=== PATIENT | male | born 1995 | race Caucasian/White ===

== ENCOUNTER 2022-05-11 20:23 | Emergency (ER) | payer OTHER, SELFPAY ==
[2022-05-11 20:36] VITALS: BP 150/65; PULSE 99; RESP 18; TEMP 35.8
--- NOTE | 2022-05-11 21:07 | CRLHL7_ITS ---
For Patients: As a result of the Century Cures Act, medical imaging exams and procedure reports are released immediately into your electronic medical record. You may view this report before your referring provider. If you have questions, please contact your health care provider. INDICATION: Chest pain. TECHNIQUE: Chest 1 view. COMPARISON: None FINDINGS: Cardiovascular and mediastinum: Heart size and vasculature are normal in caliber and appearance. Mediastinum is within normal limits. Lungs and pleural space: Lungs are clear. No sign of infiltrate or mass. No sign of pleural effusion. No pneumothorax. Bones and soft tissues: No significant findings. Left clavicle fixation hardware. IMPRESSION: Unremarkable chest. Dictated by Juan Melgoza MD @ 05/11/2022 9:45:40 PM (Electronically Signed)
--- NOTE | 2022-05-11 21:09 | ED_ITS ---
HPI - Chest Pain General Time Seen by Provider: 21:09 Date Seen: 05/11/22 Chief Complaint: Chest Pain Stated Complaint: chest pain, L arm pain Time Seen by Provider: 05/11/22 21:00 Source: patient, RN notes reviewed and old records reviewed Mode of arrival: ambulatory Limitations: no limitations History of Present Illness HPI narrative: Skip patient is a very pleasant 26-year-old male previously healthy who comes to the emergency room with chest pain. Patient he states he had the onset of chest pain between 3 and 1600 hours today. He notes this to be in his left anterior chest with radiation into his neck and his left arm. He notes that in the past he has felt this but it would only last for a few minutes. However it is now persisting and has been at least 4 hours. He thinks it is mildly improved from the onset. He has been fatigued and states he has had a dry throat and feels like he has been somewhat dehydrated. 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 He has otherwise been healthy. He does not smoke. He denies recent extended travel, history of DVT, leg pain, leg swelling. Patient states he had a similar incidence earlier in the week but the pain went away. He is not short of breath nor has he been coughing or wheezing. He denies any recent trauma. He has not taken any medication for discomfort. Related Data Allergies Allergy/AdvReac Type Severity Reaction Status Date / Time amoxicillin Allergy rash Verified 05/11/22 23:06 Review of Systems Status of ROS Reports: 10 or more systems reviewed and unremarkable except as noted in History and below Const Reports: fatigue; Denies: fever or chills Eyes Denies: change in vision ENMT Denies: throat pain, neck pain or difficulty swallowing Cardio Reports: chest pain; Denies: palpitations, swelling of feet/ankles, lightheadedness or shortness of breath with exertion Resp Denies: shortness of breath GI Denies: abdominal pain, nausea, vomiting, diarrhea or difficulty swallowing Denies: painful urination or urinary frequency Musculo Denies: neck pain Integ/Breast Denies: rash Neuro Denies: headache, numbness in extremities or weakness in extremities Psych Reports: anxiety (According to records) Endo Reports: fatigue Exam Const Vital Signs, click to edit/add: Vital Signs - 24 hr 05/11/22 20:36 05/11/22 22:00 05/11/22 22:30 Temperature 96.5 F L Pulse Rate [Pulse Oximeter] 99 66 57 L Respiratory Rate 18 16 16 Blood Pressure [150/88] 150/65 H 130/79 131/75 Pulse Oximetry 97 98 Oxygen Delivery Method Room Air Room Air Room Air 05/11/22 23:00 05/11/22 23:30 Temperature Pulse Rate [Pulse Oximeter] 55 L 52 L Respiratory Rate 16 16 Blood Pressure [150/88] 133/80 138/90 H Pulse Oximetry 98 98 Oxygen Delivery Method Room Air Room Air Documenting provider has reviewed patient's vital signs: yes Common normals: no apparent distress, average body habitus, oriented x3, no limitations, healthy appearing and alert General appearance: cooperative, comfortable and well kempt HENMT Common normals: normocephalic, head/scalp atraumatic, external ears normal and external nose normal Head and scalp: normocephalic and atraumatic Nose: external nose normal External ear: external ears normal Mouth: oral and palatal mucosa normal Throat: posterior oropharynx normal Eye Common normals: PERRL General eye: normal appearance of both eyes Pupil: PERRL Neck & C-Spine Common normals: no lymphadenopathy and supple Resp Common normals: normal respiratory effort and clear to auscultation bilaterally Effort & inspection: able to speak in complete sentences Auscultation: clear to auscultation bilaterally Cardio Common normals: regular rate, regular rhythm and no murmurs Rate: regular rate Rhythm: regular rhythm Other: Patient thought he felt perhaps slightly improved when leaning forward during auscultatory exam. GI Common normals: soft to palpation and non-tender Palpation: soft Common normals: no CVA tenderness Bladder/kidney exam: no CVA tenderness Back & Pelvis Common normals: no CVA tenderness Extremity Common normals: normal to inspection and no calf tenderness Neuro Common normals: oriented x3 Sensorium/orientation: alert Psych Common normals: mental status grossly normal Appearance: well kempt Skin Common normals: no rashes or lesions noted General skin exam: no rashes or lesions noted and scars (Well-healed over left shoulder) Course Course Hospital Course: At this time patient agrees to lab draw to include CBC, comprehensive panel, troponin, CRP, D-dimer and urinalysis. Will also add a chest x-ray as well as EKG. Differential diagnosis includes but is not limited to pericarditis, costochondritis, pleurisy, acute coronary event, pneumonia, COVID. Reevaluation(s) Reevaluation #1: Patient notes that he still has discomfort. EKG is reassuring and initial troponin is negative. Patient will receive Toradol 15 mg IV. Vital Signs Vital signs: Initial Vital Signs Temperature 96.5 F L 05/11/22 20:36 Temperature Source Temporal Artery Scan 05/11/22 20:36 Pulse Rate 99 05/11/22 20:36 Respiratory Rate 18 05/11/22 20:36 Blood Pressure 150/65 H 05/11/22 20:36 Blood Pressure Mean 93 05/11/22 20:36 Oxygen Delivery Method 05/11/22 20:36 Vital Signs Temperature 96.5 F L 05/11/22 20:36 Pulse Rate 99 05/11/22 20:36 Respiratory Rate 18 05/11/22 20:36 Blood Pressure 150/65 H 05/11/22 20:36 Oxygen Delivery Method 05/11/22 20:36 Temperature 96.5 F L 05/11/22 20:36 Pulse Rate 52 L 05/11/22 23:30 Respiratory Rate 16 05/11/22 23:30 Blood Pressure 138/90 H 05/11/22 23:30 Pulse Oximetry 98 05/11/22 23:30 Oxygen Delivery Method 05/11/22 23:30 MDM - Chest Pain MDM Narrative Medical decision making narrative: 1. Atypical chest pain-patient is noted to have chest pain 5/10 at this initial onset, 2/10 upon his arrival here at the ED and now has had almost complete resolution of his discomfort after receiving Toradol. Two sets of negative cardiac enzymes as well as 2 reassuring EKGs have been done tonight. Further, D-dimer is negative and other labs are reassuring including CRP. Recommend continued use of ibuprofen as needed for discomfort. Follow-up with primary MD for recheck if needed. Course, if pain suddenly increases would have him return to the emergency room. 2. Disposition-patient is discharged home. Return as needed. Medical Records Data Attestation: I reviewed the patient's medical records. Lab Data Attestation: I reviewed the patient's lab results. Labs: Lab Results 05/11/22 05/11/22 05/11/22 Range/Units 21:25 21:30 21:30 WBC 8.06 (4.50-11.00) K/uL RBC 4.96 (4.30-5.90) m/uL Hgb 14.4 (13.5-17.5) gm/dL Hct 41.2 (37.0-53.0) % MCV 83 (80-100) fL MCH 29 (26-34) pg MCHC 35 (32-36) gm/dL RDW Coeff of Keiry 11.7 (11.5-15.5) % Plt Count 218 (140-440) K/uL Neut % (Auto) 63.7 (42.0-72.0) % Lymph % (Auto) 25.6 (20-44) % [place] % (Auto) 5.5 (0.0-11.0) % Eos % (Auto) 4.3 (0.0-7.0) % Baso % (Auto) 0.7 (0.0-3.0) % Neut # (Auto) 5.13 (1.7-7.0) K/uL Lymph # (Auto) 2.06 (0.90-2.90) K/uL [place] # (Auto) 0.40 (0.00-0.90) K/UL Eos # (Auto) 0.35 (0.00-0.50) K/uL Baso # (Auto) 0.06 (0.00-0.30) K/uL Abs Immat Gran (auto) 0.02 (0.00-0.30) K/uL D-Dimer Quant (PE/DVT) 0.32 (0.00-0.50) ug/ml Sodium (135-149) mmol/L Potassium (3.6-5.1) mmol/L Chloride (96-114) mmol/L Carbon Dioxide (20-32) mmol/L BUN (5-24) mg/dL Creatinine (0.5-1.5) mg/dL Estimated GFR ml/min Glucose (60-115) mg/dL Calcium (8.4-10.6) mg/dL Total Bilirubin (0.1-1.5) mg/dL AST (12-35) U/L ALT (4-50) U/L Alkaline Phosphatase (40-150) U/L C-Reactive Protein (0.5-1.0) mg/dL Total Protein (6.0-8.3) g/dL Albumin (3.3-5.0) g/dL Urine Color (Yellow) Urine Appearance (Clear) Urine pH (5.0-8.5) Ur Specific [place] (1.000-1.030) Urine Protein (Negative) Urine Glucose (UA) (Negative) Urine Ketones (Negative) Urine Blood (Negative) Urine Nitrite (Negative) Urine Bilirubin (Negative) Urine Urobilinogen (0.2-1.0) Ur Leukocyte Esterase (Negative) Urine RBC (0-2) Urine WBC (0-5) Ur Squamous Epith Cells (None-Few) Urine Bacteria (None) POC Troponin I 0.00 L (0.01-0.04) ng/ml 05/11/22 05/11/22 05/11/22 Range/Units 21:30 21:30 23:03 WBC (4.50-11.00) K/uL RBC (4.30-5.90) m/uL Hgb (13.5-17.5) gm/dL Hct (37.0-53.0) % MCV (80-100) fL MCH (26-34) pg MCHC (32-36) gm/dL RDW Coeff of Keiry (11.5-15.5) % Plt Count (140-440) K/uL Neut % (Auto) (42.0-72.0) % Lymph % (Auto) (20-44) % [place] % (Auto) (0.0-11.0) % Eos % (Auto) (0.0-7.0) % Baso % (Auto) (0.0-3.0) % Neut # (Auto) (1.7-7.0) K/uL Lymph # (Auto) (0.90-2.90) K/uL [place] # (Auto) (0.00-0.90) K/UL Eos # (Auto) (0.00-0.50) K/uL Baso # (Auto) (0.00-0.30) K/uL Abs Immat Gran (auto) (0.00-0.30) K/uL D-Dimer Quant (PE/DVT) (0.00-0.50) ug/ml Sodium 139 (135-149) mmol/L Potassium 3.6 (3.6-5.1) mmol/L Chloride 104 (96-114) mmol/L Carbon Dioxide 25 (20-32) mmol/L BUN 14 (5-24) mg/dL Creatinine 0.9 (0.5-1.5) mg/dL Estimated GFR 120 ml/min Glucose 98 (60-115) mg/dL Calcium 9.4 (8.4-10.6) mg/dL Total Bilirubin 0.5 (0.1-1.5) mg/dL AST 23 (12-35) U/L ALT 22 (4-50) U/L Alkaline Phosphatase 63 (40-150) U/L C-Reactive Protein < 0.5 L (0.5-1.0) mg/dL Total Protein 7.9 (6.0-8.3) g/dL Albumin 5.0 (3.3-5.0) g/dL Urine Color Yellow (Yellow) Urine Appearance Clear (Clear) Urine pH 7.0 (5.0-8.5) Ur Specific [place] 1.015 (1.000-1.030) Urine Protein Negative (Negative) Urine Glucose (UA) Negative (Negative) Urine Ketones Negative (Negative) Urine Blood Trace-lysed A (Negative) Urine Nitrite Negative (Negative) Urine Bilirubin Negative (Negative) Urine Urobilinogen 0.2 (0.2-1.0) Ur Leukocyte Esterase Negative (Negative) Urine RBC 0-2 (0-2) Urine WBC 0-2 (0-5) Ur Squamous Epith Cells None (None-Few) Urine Bacteria None (None) POC Troponin I 0.00 L (0.01-0.04) ng/ml Imaging Data Chest x-ray: Attestation: I have reviewed the pertinent imaging results. My impression: No acute infiltrates. No evidence of widened mediastinum Radiologist's impression: No acute findings. ECG Data Attestation: I personally reviewed and interpreted this ECG as follows: ECG interpretation date: 05/11/22 Interpretation: No acute ST or T-wave changes. Sinus rhythm at a rate of 65. QT corrected 436 Second EKG by my read shows sinus bradycardia rhythm at a rate of 55. No evidence of acute ST or T-wave changes. Discharge Plan Discharge Clinical Impression: Atypical chest pain Patient Disposition: Home, Self-Care Condition: Improved Additional Instructions: Continue ibuprofen as needed for discomfort. Return to the emergency room for worsening or return of pain. Follow-up with your primary MD for further evaluation. Follow Up/Referrals: Dneisse Dodson MD [Primary Care Provider] - Stand Alone Forms: Girl Meets Dress Info Instructions
[2022-05-11 21:46] LABS: Basophils Absolute Auto 0.06 K/uL (0.00-0.30); Basophils Percent Auto 0.7 % (0.0-3.0); Eosinophils Absolute Auto 0.35 K/uL (0.00-0.50); Eosinophils Percent Auto 4.3 % (0.0-7.0); Hematocrit 41.2 % (37.0-53.0); Hemoglobin* 14.4 gm/dL (13.5-17.5); Immature Granulocytes Abs Auto 0.02 K/uL (0.00-0.30); Lymphocytes Absolute Auto 2.06 K/uL (0.90-2.90); Lymphocytes Percent Auto 25.6 % (20-44); Mean Corpuscular HGB Conc 35 gm/dL (32-36); Mean Corpuscular Hemoglobin 29 pg (26-34); Mean Corpuscular Volume 83 fL (80-100); Monocytes Percent Auto 5.5 % (0.0-11.0); Neutrophils Absolute Auto 5.13 K/uL (1.7-7.0); Neutrophils Percent Auto 63.7 % (42.0-72.0); Platelet Count* 218 K/uL (140-440); RDW Coefficient of Variation % 11.7 % (11.5-15.5); Red Blood Count 4.96 m/uL (4.30-5.90); White Blood Count* 8.06 K/uL (4.50-11.00)
[2022-05-11 22:00] VITALS: BP 130/79; PULSE 66; RESP 16; O2SAT 97
[2022-05-11 22:00] LABS: Chloride* 104 mmol/L (96-114)
[2022-05-11 22:01] LABS: Potassium* 3.6 mmol/L (3.6-5.1); Sodium* 139 mmol/L (135-149)
[2022-05-11 22:03] LABS: Alkaline Phosphatase* 63 U/L (40-150); Aspartate Amino Transferase* 23 U/L (12-35); Bilirubin Total* 0.5 mg/dL (0.1-1.5); Carbon Dioxide* 25 mmol/L (20-32); Creatinine* 0.9 mg/dL (0.5-1.5); Estimated Glomerular Filt Rate 120 ml/min; Total Protein* 7.9 g/dL (6.0-8.3)
[2022-05-11 22:04] LABS: Alanine Aminotransferase* 22 U/L (4-50); Blood Urea Nitrogen* 14 mg/dL (5-24); Calcium* 9.4 mg/dL (8.4-10.6); Glucose* 98 mg/dL (60-115)
[2022-05-11 22:08] LABS: C Reactive Protein* < 0.5 mg/dL (0.5-1.0); Slide Review Reflex No
[2022-05-11 22:20] LABS: D Dimer Quantitative* 0.32 ug/ml (0.00-0.50)
[2022-05-11 22:22] LABS: Appearance Urine Clear (Clear); Bilirubin Urine Negative (Negative); Blood Urine Trace-lysed (Negative); Color Urine Yellow (Yellow); Glucose Urine Negative (Negative); Ketones Urine Negative (Negative); Protein Urine Negative (Negative); Specific Gravity Urine 1.015 (1.000-1.030); Urobilinogen Urine 0.2 (0.2-1.0)
[2022-05-11 22:23] LABS: Leukocyte Esterase Urine Negative (Negative); Nitrite Urine Negative (Negative); RBC Urine 0-2 (0-2); WBC Urine 0-2 (0-5)
[2022-05-11 22:30] VITALS: BP 131/75; PULSE 57; RESP 16; O2SAT 98
[2022-05-11 23:00] VITALS: BP 133/80; PULSE 55; RESP 16; O2SAT 98
[2022-05-11] MEDS: KETOROLAC 15 MG/ML inj IVP (23:06)
[2022-05-11 23:30] VITALS: BP 138/90; PULSE 52; RESP 16; O2SAT 98
== END 2022-05-12 00:02 | disposition home or self-care (01) ==
PROVIDERS: Emergency Provider Family Medicine; PCP Family Medicine
DX: R07.89 Other chest pain (principal)
CPT/HCPCS: 36415; 71045; 80053; 81003; 81015; 84484; 85025; 85379; 86140; 93005; 96374; 99284; 99285; J1885

== ENCOUNTER 2024-10-03 15:47 | Emergency (ER) | payer BC, SELFPAY ==
--- OUTSIDE RECORDS SUMMARY | 2024-10-03 15:49 | XMS_ITS | Clinical Summary ---
Author Organization [facility] Address [place], [place] [address] Care Team Providers Care Saw Edge Fuser Circular Name Role Phone Pcp, No Primary Care Provider Unavailabl e Allergies Active Allergy Reactions Criticality Noted Date Comments Amoxicillin Medications omeprazole 20 mg tabletIndication s:Abdominal pain, LUQ (left upper quadrant) Take 1 Tablet (20 mg) by mouth once daily before a meal. 90 Tablet 3 02/22/2024 Active Active Problems Problem Noted Date Diagnosed Date Innocent heart murmur 02/03/2012 Allergic rhinitis, cause unspecified Encounters Date Type Department Care Team Description 10/03/2024 Nurse Triage [facility] at [address] [address] Pcp, No Head Injury from Last 3 Months Immunizations Name Administration Dates Next Due DTaP 10/28/1995,01/08/1995,1994 ,1994 HIB PRP-OMP (PedvaxHIB) 10/28/1995,01/08/1995,,1994 Hepatitis B (Peds) 1995,04/24/1995, 995 Inactivated Polio Vaccine 07/30/1999,01/08/1995, 1994,1994 Influenza, IIV4 11/14/2019 MMR 07/30/1999,10/28/1995 Td (Age >=7 Years) 07/30/1999 Tdap 02/19/2018,07/02/2006 Family History Medical History Relation Name Comments Hyperlipidemia Father Hypertension Maternal Aunt Cancer Maternal Grandfather melanom a Hypertension Maternal Uncle Hypertension Paternal Grandfather Diabetes Paternal Grandmother Relation Name Status Comments Father Alive Maternal Aunt Maternal Grandfather Maternal Uncle Mother Alive Paternal Grandfather Paternal Grandmother Social History Tobacco Use Types Packs/Day Years Used Date Smoking Tobacco: Never Smokeless Tobacco: Never Tobacco Cessation:Counseling Given: Yes Alcohol Use Standard Drinks/Week Comments Yes 0 (1 standard drink = 0.6 oz pur e alcohol) 1 time a month PHQ-2 Answer Date Recorded PHQ-2 TOTAL SCORE 0 06/19/2021 Social Connections Answer Date Recorded Do you often feel lonely or isolated from those around you? 0 02/22/2024 Financial Resource Strain Answer Date R ecorded Difficulty of Paying Living Expenses 3 02/22/2024 Difficulty of Paying Living Expenses Not on file 02/22/2024 Food Insecurity Answer Date Recorded Do you worry your food will run out before you are able to buy more? 1 02/22/2024 Transportation Needs Answer Date Record ed Does lack of transportation keep you from medica l appointments? 1 02/22/2024 Does lack of transportation keep you from work, meetings or getting things that you need? 1 02/22/2024 Housing Stability Answer Date Recorded What is your housing situation today? 1 02/22/2024 Utilities Answer Date Recorded Do you have trouble paying f or utilities (for example, heat, electricity, water, phone)? 1 02/22/2024 Sex and Gender Information Value Date Recorded Sex Assigned at Not on file Legal Sex Male 7:05 AM MAINTENANCE REPRESENTATIVE Gender Identity Not on file Sexual Orientation Not on file Obstetrics History Last Filed Vital Signs Vital Sign Reading Time Taken Comments Blood Pressure 129/81 02/22/2024 11:18 AM CDT Pulse 58 02/22/2024 11:18 AM CDT Temperature 36.9 C (98.4 F) 06/19/2021 8:25 AM CDT Respiratory Rate 16 11/07/2022 8:23 AM MAINTENANCE REPRESENTATIVE Oxygen Saturation 98% 02/22/2024 11:18 AM CDT Inhaled Oxygen Concentration - - Weight 84.5 kg (186 lb 4.8 oz) 02/22/2024 11:18 AM CDT Height 182.9 cm (6') 11/07/2022 8:23 AM MAINTENANCE REPRESENTATIVE Body Mass Index 25.27 11/07/2022 8:23 AM MAINTENANCE REPRESENTATIVE Plan of Treatment Health Maintenance Due Date Last Done Comments HIV for age 15-65 2009 Hepatitis C screening for ag e 18-79 2012 Depression screening for age 12+ 06/19/2022 06/19/2021, 11/15/2019, 11/14/2019 BMI (ht and wt on same day) for age 18+ 11/08/2023 11/07/2022, 11/14/2019 COVID-19 vaccine series ( season) 2024 01/17/2021, 12/20/2020 Influenza for age 9-49 05/01/2024 11/14/2019 Tetanus booster 02/20/2028 02/19/2018, 07/02/2006, 07/30/1999 Tdap Completed 02/19/2018, 07/02/2006 Pneumococcal series for age 6-49 Aged Out No longer eligible b ased on patient's age to complete this topic Insurance [facility] NON-ID-ITS Care Teams Saw Edge Fuser Circular Relationship Specialty Start Date End Date Pcp, No . PCP - General 01/14/23
[2024-10-03 15:51] VITALS: BP 133/62; PULSE 65; RESP 18; TEMP 37.3; O2SAT 98; BMI 25.1
--- NOTE | 2024-10-03 16:06 | ED_ITS ---
HPI - Head Injury General Time Seen by Provider: 16:06 Date Seen: 10/03/24 Chief complaint: Head Injury/Pain Stated complaint: Possible concusison Time Seen by Provider: 10/03/24 15:48 Source: patient and RN notes reviewed Mode of arrival: ambulatory Limitations: no limitations History of Present Illness HPI Narrative: This 29yo male is coming into the ED upon direction of triage nurse at [facility]. He was snowboarding Thursday morning, fell forward going maybe about 15 mph. He was wearing a helmet but admits he probably did not have it on tightly. The helmet did come off, he did land on his left side. There is no tenting of the helmet. Since then he has had a left-sided headache, some nausea, fatigue, lightheadedness. He was using Tylenol and ibuprofen over the weekend and thought that it was increasing his nausea and lightheadedness. Today his symptoms have improved including the headache, the nausea, the lightheadedness. He did notice some left chest wall pain, hurts with deep breathing. He has had a rib fracture on the right side before and maybe feels like that. He knows it was just conservative management for that. The triage nurse notified him to go to the ER. He is not short of breath, no difficulty breathing, no fevers or chills. He has noted no double vision, feels there was no loss of consciousness. He has been up ambulatory. He did have a little left shoulder pain initially an states his arm felt a little weaker on the left side with that this weekend but feels he is back to baseline with symptom resolution. He believes he has had a prior concussion before but did not going to be evaluated. He is not on any blood thinners. Related Data Home Medications ?Medication ?Instructions ?Recorded ?Confirmed No Known Home Medications 10/03/24 10/03/24 Allergies Allergy/AdvReac Type Severity Reaction Status Date / Time amoxicillin Allergy rash Verified 05/11/22 23:06 Review of Systems Status of ROS: Reports: 6 or more systems reviewed and unremarkable except as noted in History and below Exam Const: Vital Signs, click to edit/add: Vital Signs - 24 hr 10/03/24 15:51 Temperature 99.1 F Pulse Rate [Pulse Oximeter] 65 Respiratory Rate 18 Blood Pressure [Ri ght Upper Arm] 133/62 Pulse Oximetry 98 This 29-year-old male is alert, interactive, no apparent stress. Pupils equal round reactive to leg, sq clear, vision normal confrontation. TMs canals normal, no traumatic change. Symmetrical facial function, no visible ecchymosis or erythema on inspection of his scalp, face. He does not have any postauricular ecchymosis or traumatic change. No midline tenderness over his neck through his spine. No paraspinous tenderness, good range of motion of his neck. Lungs are clear, good air entry, no wheezing or crackles. CV regular rate and rhythm, no murmur, normal S1-S2, no S3-S4. He a is nontender over his clavicles in his glenohumeral joint on the left. He has full range of motion about his shoulder without any significant complaints of pain. Strength is 5 5 and symmetric throughout his upper extremities. Normal rapid alternating finger movements. His gait is normal, ambulated in. I seen no ecchymosis or traumatic change on his chest wall anteriorly or posteriorly. There is some mild anterolateral left lower chest wall tenderness without any step-off, no crepitus. Documenting provider has reviewed patient's vital signs: yes Course Course ED Course: Have reviewed with patient the [place] head injury rules. He does not necessitate CT imaging based on criteria from the [place] head injury rules. He does admit that his symptoms are better today. Did discuss use of Zofran but he declines this, states his nausea is better too. Did discuss doing chest x- ray imaging but he declines. Did review that if there were significant injuries on chest x-ray imaging, we may consider doing chest CT. He understands but believes that he is able to observe and declines further testing for his chest. He does understand to return if increase in difficulty breathing, shortness of breath, development of fever with cough as a possible complication of pneumonia from chest injury. Vital Signs Vital signs: Initial Vital Signs Temperature 99.1 F 10/03/24 15:51 Temperature Source Temporal Artery Scan 10/03/24 15:51 Pulse Rate 65 10/03/24 15:51 Respiratory Rate 18 10/03/24 15:51 Blood Pressure 133/62 10/03/24 15:51 Blood Pressure Mean 85 10/03/24 15:51 Blood Pressure Position Sitting 10/03/24 15:51 Pulse Oximetry 98 10/03/24 15:51 Vital Signs Temperature 99.1 F 10/03/24 15:51 Pulse Rate 65 10/03/24 15:51 Respiratory Rate 18 10/03/24 15:51 Blood Pressure 133/62 10/03/24 15:51 Pulse Oximetry 98 10/03/24 15:51 Temperature 99.1 F 10/03/24 15:51 Pulse Rate 65 10/03/24 15:51 Respiratory Rate 18 10/03/24 15:51 Blood Pressure 133/62 10/03/24 15:51 Pulse Oximetry 98 10/03/24 15:51 Discharge Plan Discharge Clinical Impression: Concussion without loss of consciousness Patient Disposition: Home, Self-Care Condition: Stable Instructions: Concussion (ED), Post Concussion Syndrome (ED) Additional Instructions: Can try to return to work tomorrow but if working on computer screens or being at work increases symptoms, will need to follow up in clinic. You need to avoid any activity where you might hit your head again until you have improved from these symptoms. Your primary care doctor can help with return to normal activities as you feel better. Sometimes people need referral to traumatic brain injury or concussion centers, consider this if you have ongoing symptoms. It is fine to try Tylenol or ibuprofen for headache symptoms. If you do start vomiting, have increasing headache or increasing symptoms, do recommend re- evaluation. Note provided to be off work today. Activity Level: Activity as Tolerated Prescriptions: No Action No Known Home Medications Follow Up/Referrals: Denisse Dodson MD [Referring] - Stand Alone Forms: [employer] Info Instructions
--- OUTSIDE RECORDS SUMMARY | 2024-10-03 16:47 | XMS_ITS | Clinical Summary ---
Author Organization [facility] Address [place], [place] [address] Care Team Providers Care Hr Consultant Name Role Phone Pcp, No Primary Care [...] Department Care Team Description 10/03/2024 Nurse Triage [facility] at [address] [address] Pcp, No Head Injury from [...] on file Legal Sex Male 7:05 AM SPARE HAND CARDING Gender Identity Not on file Sexual Orientation Not on file Obstetrics History Last Filed Vital Signs Vital Sign Reading Time Taken Comments Blood Pressure 129/81 02/22/2024 11:18 AM CDT Pulse 58 02/22/2024 11:18 AM CDT Temperature 36.9 C (98.4 F) 06/19/2021 8:25 AM CDT Respiratory Rate 16 11/07/2022 8:23 AM SPARE HAND CARDING Oxygen Saturation 98% 02/22/2024 11:18 AM CDT Inhaled Oxygen Concentration - - Weight 84.5 kg (186 lb 4.8 oz) 02/22/2024 11:18 AM CDT Height 182.9 cm (6') 11/07/2022 8:23 AM SPARE HAND CARDING Body Mass Index 25.27 11/07/2022 8:23 AM SPARE HAND CARDING Plan of Treatment Health Maintenance Due Date [...] patient's age to complete this topic Insurance [facility] NON-VA-ITS Care Teams Hr Consultant Relationship Specialty Start Date End Date Pcp, No . PCP - General 01/14/23
== END 2024-10-03 16:55 | disposition home or self-care (01) ==
LOC: ED 16:45
PROVIDERS: Emergency Provider Family Medicine
DX: S06.0X0A Concussion without loss of consciousness, initial encounter (principal); W00.9XXA Unspecified fall due to ice and snow, initial encounter; Y93.23 Activity, snow (alpine) (downhill) skiing, snowboarding, sledding, tobogganing and snow tubing
CPT/HCPCS: 99283